=== PATIENT | female | born 1955 | race Caucasian/White ===

== ENCOUNTER 2018-01-18 14:30 | Outpatient (CLI) | payer BC, MEDICARE, SELFPAY ==
[2018-01-18 15:04] LABS: HCT 39.9 % (36.0-46.0); HGB 13.8 g/dL (12.0-15.5); Mean Corp. HGB Concentration 34.6 g/dL (32.0-36.0); Mean Corpuscular Hemoglobin 32.6 pg (27.0-33.0); Mean Corpuscular Volume 94.3 fL (80-95); Mean Platelet Volume 10.8 fL (8.0-11.0); Platelet Count 191 x1000/uL (130-400); RBC 4.23 m/cumm (4.00-5.20); RBC Distribution Width 12.8 % (11.7-14.6); White Blood Cell Count 7.52 k/cumm (4.4-10.8)
[2018-01-18 15:49] LABS: ALT 28 U/L (12-78); AST 21 U/L (15-37); Albumin 3.8 g/dL (3.4-5.0); Alkaline Phosphatase 70 U/L (46-116); Anion Gap 8.4 mmol/L (3-11); BUN 19 mg/dL (7-18); Bilirubin, Total 0.3 mg/dL (0.2-1.0); CO2 31.6 mmol/L (21.0-32.0); CREATININE 0.91 mg/dL (0.55-1.02); Calcium 9.2 mg/dL (8.5-10.1); Chloride 100 mmol/L (98-107); Glucose 106 mg/dL (70-100); Potassium 4.2 mmol/L (3.5-5.1); Sodium 140 mmol/L (136-145); Total Protein 6.9 g/dL (6.4-8.2)
[2018-01-22 14:39] LABS: HCV RNA Detection Quantitative Detected (UNDECT)
== END 2018-01-18 14:50 ==
PROVIDERS: PCP Registered Nurse; Visit Provider Physician Assistant Medical
DX: B18.2 Chronic viral hepatitis C (principal)
CPT/HCPCS: 36415; 80053; 85027; 85025; 87522

== ENCOUNTER 2018-02-21 13:24 | Outpatient (CLI) | payer BC, MEDICARE, SELFPAY ==
[2018-02-21 14:14] LABS: HCT 41.8 % (36.0-46.0); HGB 13.9 g/dL (12.0-15.5); Mean Corp. HGB Concentration 33.3 g/dL (32.0-36.0); Mean Corpuscular Hemoglobin 31.7 pg (27.0-33.0); Mean Corpuscular Volume 95.4 fL (80-95); Mean Platelet Volume 11.2 fL (8.0-11.0); Platelet Count 207 x1000/uL (130-400); RBC 4.38 m/cumm (4.00-5.20); White Blood Cell Count 5.56 k/cumm (4.4-10.8)
== END 2018-02-21 13:44 ==
PROVIDERS: PCP Registered Nurse; Visit Provider Physician Assistant Medical
DX: B18.2 Chronic viral hepatitis C (principal)
CPT/HCPCS: 36415; 85027; 85025

== ENCOUNTER 2018-03-14 13:28 | Outpatient (CLI) | payer BC, MEDICARE, SELFPAY ==
[2018-03-14 14:37] LABS: Absolute Basophil Count 0.03 k/cumm (0.0-0.2); Absolute Eosinophil Count 0.12 k/cumm (0.0-0.7); Absolute Lymphocyte Count 1.83 k/cumm (1.2-3.4); Absolute Monocyte Count 0.47 k/cumm (0.11-0.7); Absolute Neutrophil Count 3.17 k/cumm (1.2-6.7); Basophils % 0.5; Eosinophils % 2.1; HCT 40.6 % (36.0-46.0); HGB 13.7 g/dL (12.0-15.5); Lymphocytes % 32.6; Mean Corp. HGB Concentration 33.7 g/dL (32.0-36.0); Mean Corpuscular Hemoglobin 32.2 pg (27.0-33.0); Mean Corpuscular Volume 95.3 fL (80-95); Mean Platelet Volume 11.1 fL (8.0-11.0); Monocytes % 8.4; Neutrophils % 56.4; Platelet Count 200 x1000/uL (130-400); RBC 4.26 m/cumm (4.00-5.20); RBC Distribution Width 12.7 % (11.7-14.6); White Blood Cell Count 5.62 k/cumm (4.4-10.8)
[2018-03-14 15:26] LABS: ALT 31 U/L (12-78); AST 26 U/L (15-37); Albumin 3.9 g/dL (3.4-5.0); Alkaline Phosphatase 66 U/L (46-116); BUN 18 mg/dL (7-18); Bilirubin, Total 0.4 mg/dL (0.2-1.0); CREATININE 0.87 mg/dL (0.55-1.02); Calcium 9.2 mg/dL (8.5-10.1); Chloride 100 mmol/L (98-107); Glucose 91 mg/dL (70-100); Potassium 4.2 mmol/L (3.5-5.1); Sodium 140 mmol/L (136-145); Total Protein 6.9 g/dL (6.4-8.2)
[2018-03-15 15:01] LABS: HCV RNA Detection Quantitative Undetected IU/mL (UNDECT)
== END 2018-03-14 13:48 ==
PROVIDERS: PCP Registered Nurse; Visit Provider Physician Assistant Medical
DX: B18.2 Chronic viral hepatitis C (principal)
CPT/HCPCS: 36415; 80053; 85025; 87522

== ENCOUNTER 2018-09-11 11:18 | Outpatient (CLI) | payer BC, MEDICARE, SELFPAY ==
[2018-09-11 12:01] LABS: HCT 40.7 % (36.0-46.0); HGB 13.8 g/dL (12.0-15.5); Mean Corp. HGB Concentration 33.9 g/dL (32.0-36.0); Mean Corpuscular Hemoglobin 31.3 pg (27.0-33.0); Mean Corpuscular Volume 92.3 fL (80-95); Mean Platelet Volume 11.5 fL (8.0-11.0); Platelet Count 192 x1000/uL (130-400); RBC 4.41 m/cumm (4.00-5.20); RBC Distribution Width 13.6 % (11.7-14.6); White Blood Cell Count 5.91 k/cumm (4.4-10.8)
[2018-09-11 12:42] LABS: ALT 24 U/L (12-78); AST 17 U/L (15-37); Albumin 3.9 g/dL (3.4-5.0); Alkaline Phosphatase 70 U/L (46-116); Anion Gap 8.1 mmol/L (3-11); BUN 19 mg/dL (7-18); Bilirubin, Total 0.5 mg/dL (0.2-1.0); CO2 30.9 mmol/L (21.0-32.0); CREATININE 0.89 mg/dL (0.55-1.02); Calcium 9.4 mg/dL (8.5-10.1); Chloride 103 mmol/L (98-107); Glucose 100 mg/dL (70-100); Potassium 4.1 mmol/L (3.5-5.1); Sodium 142 mmol/L (136-145)
[2018-09-12 14:42] LABS: HCV RNA Detection Quantitative Undetected IU/mL (UNDECT)
== END 2018-09-11 11:38 ==
PROVIDERS: PCP Registered Nurse; Visit Provider Physician Assistant Medical
DX: B18.2 Chronic viral hepatitis C (principal)
CPT/HCPCS: 36415; 80053; 85027; 87522

== ENCOUNTER 2019-04-30 01:29 | Outpatient (CLI) | payer BC, MEDICARE, SELFPAY ==
--- NOTE | 2019-04-30 10:55 | DI.MAMMO_ITS ---
EXAM: MG MAMMO SCREENING CLINICAL HISTORY: screening Z12.39, PREVENTIVE Z00.00. TECHNIQUE: Bilateral full field digital CC and MLO mammographic images were obtained with 3D tomosyn thesis and utilizing computer aided detection (CAD). COMPARISON: Available for comparison. FINDINGS: Masses/Architectural Distortion: None seen. Microcalcifications: No suspicious pleomorphic-type are seen. Skin Thickening/Nipple Retraction: None. IMPRESSION: 1. No significant interval change with no specific features of malignancy noted. 2. Unless there is more urgent need, screening mammography is recommended, as per [employer] guidelines. ACR BI-RAD Category- 1 Negative Breast Density - Category B - Scattered areas of fibroglandular density A negative radiographic report should not delay biopsy if a dominant or clinically suspicious mass is present. Up to ten percent of cancers are not identified on mammography. A negative report may reinforce clinical impression. Adenosis and dense breasts may obscure an underlying neoplasm. False positive reports average 6 to 10%. Patient will receive a letter notifying them of these results.
== END 2019-04-30 01:49 ==
PROVIDERS: PCP Student in an Organized Health Care Education/Training Program; Visit Provider Student in an Organized Health Care Education/Training Program
DX: Z00.00 Encounter for general adult medical examination without abnormal findings (principal); Z12.31 Encounter for screening mammogram for malignant neoplasm of breast
CPT/HCPCS: 77063; 77067

== ENCOUNTER 2019-06-19 12:55 | Outpatient (CLI) | payer BC, MEDICARE, SELFPAY ==
--- NOTE | 2019-06-19 13:00 | DI.RAD_ITS ---
EXAM: ABDOMEN FLAT PLATE CLINICAL HISTORY: mishel flank pain,microscopic hematuria,h/o renal calcui,R10.9,R31.29,Z87.442. COMPARISON: No exams were available for comparison TECHNIQUE: Supine views of the abdomen performed. FINDINGS: BOWEL GAS PATTERN: Nondistended. CALCIFICATIONS: There is a 2 mm calcification projected over the upper pole of the right renal shadow which may represent a nonobstructing stone. There is a 3 mm calcification inferior to the left sacr oiliac joint. This location might lie in the left ureter. Phleboliths are seen in the pelvis. OSSEOUS STRUCTURES: Normal for age. OTHER FINDINGS: None. IMPRESSION: 1. Nonobstructive bowel gas pattern. 2. Possible nonobstructing stone in the upper pole of the right kidney. 3. 3 mm calcification inferior to the left sacroiliac joint which might lie in the distal ureter. If there is continued clinical concern, a renal colic CT should be considered for further evaluation. DATA REPOSITORY: RADIATION DOSE DELIVERED:
== END 2019-06-19 13:15 ==
PROVIDERS: PCP Student in an Organized Health Care Education/Training Program; Visit Provider Nurse Practitioner
DX: R31.29 Other microscopic hematuria (principal); R10.31 Right lower quadrant pain; R10.32 Left lower quadrant pain; N20.0 Calculus of kidney; Z87.442 Personal history of urinary calculi
CPT/HCPCS: 74018

== ENCOUNTER 2019-08-21 01:25 | Outpatient (CLI) | payer BC, MEDICARE, SELFPAY ==
--- NOTE | 2019-08-21 08:15 | DI.DEXA_ITS ---
EXAM: XR DEXA BONE DENSITY W/WO CARMELO CLINICAL HISTORY: screening for osteoporosis,PREVENTIVE CARE,VIT D DEFICIENT,Z00.00,M81.0, E55.9, OT HER DISORDER OF BONE, M89.8X9 TECHNIQUE COMPARISON: No exams were available for comparison FINDINGS: Lateral Spine Image: Unremarkable. No compression deformities identified. Left hip: Total T-Score: -1.6 Total Z-Score: -0.3 T- and Z-scores: Findings consistent with osteopenia and an increased fracture risk. Lumbar Spine: Total T-Score: -0.7 Total Z-Score: 1.2 T- and Z-scores: Within normal limits. IMPRESSION: No evidence of osteoporosis.
== END 2019-08-21 01:45 ==
PROVIDERS: PCP Student in an Organized Health Care Education/Training Program; Visit Provider Student in an Organized Health Care Education/Training Program
DX: Z00.00 Encounter for general adult medical examination without abnormal findings (principal); E55.9 Vitamin D deficiency, unspecified; M85.88 Other specified disorders of bone density and structure, other site
CPT/HCPCS: 77080

== ENCOUNTER 2020-04-07 17:13 | Emergency (ER) | payer BC, MEDICARE, SELFPAY ==
--- NOTE | 2020-04-07 17:15 | DI.RAD_ITS ---
EXAM: XR ANKLE RT COMPLETE CLINICAL HISTORY: pain s/p fall. TECHNIQUE: 2D digital imaging was performed. COMPARISON: No exams were available for comparison FINDINGS: BONES: No acute fracture is present. No bony destructive lesion is seen. There is a well corticated osseous density inferior to the medial malleolus which appears chronic. JOINTS: The ankle mortise is normally aligned. SOFT TISSUE: Soft tissue swelling about the ankle laterally. IMPRESSION: No acute fracture or dislocation. Lateral soft tissue swelling. DATA REPOSITORY: RADIATION DOSE DELIVERED:
--- NOTE | 2020-04-07 17:15 | DI.RAD_ITS ---
EXAM: XR KNEE LT 3V AP,LAT,ROHAN CLINICAL HISTORY: pain s/p fall. TECHNIQUE: 2D digital imaging was performed. COMPARISON: CR XR ABDOMEN FLAT PLATE from 06/19/2019 FINDINGS: BONES: No acute fracture is present. No bony destructive lesion is seen. JOINTS: The knee is normally aligned. There may be a small joint effusion. SOFT TISSUE: Normal. IMPRESSION: No acute fracture or dislocation. Possible small joint effusion. DATA REPOSITORY: RADIATION DOSE DELIVERED:
--- NOTE | 2020-04-07 17:15 | DI.RAD_ITS ---
EXAM: XR HIP LT COMPLETE AP PELVIS CLINICAL HISTORY: pain s/p fall. TECHNIQUE: 2D digital imaging was performed. COMPARISON: No exams were available for comparison FINDINGS: BONES: No acute fracture is present. No bony destructive lesion is seen. JOINTS: No dislocation present. SOFT TISSUE: Normal. IMPRESSION: No acute fracture or dislocation. DATA REPOSITORY: RADIATION DOSE DELIVERED:
[2020-04-07 17:18] VITALS: BP 172/79; PULSE 78; RESP 18; TEMP 34.5; O2SAT 97
--- NOTE | 2020-04-07 17:30 | ED.GENADUL_ITS ---
Discharge Plan Disposition Patient Disposition: HOME Condition: Stable Discharge Details Clinical Impression: Contusion of hip, left, Contusion of left knee, Sprain of ankle, right Primary Care Provider: Kassandra Lynn ED Provider: Niranjan Pnito Home Meds and New Rx's Prescriptions: New ketorolac 10 mg tablet 10 mg PO Q6H PRN5 Days Qty: 14 RF: 0 Continued ascorbic acid (vitamin C) 500 mg tablet,chewable 500 mg PO BID RF: 0 hydrochlorothiazide 25 mg tablet 25 mg PO DAILY Qty: 90 RF: 3 escitalopram oxalate 20 mg tablet 20 mg PO DAILY Qty: 90 RF: 3 cannabidiol 100 mg/mL solution See Rx Instructions PO .COMPLEX RF: 0 cetirizine 10 mg tablet 10 mg PO DAILY Qty: 90 RF: 1 albuterol sulfate 90 mcg/actuation HFA aerosol inhaler 2 puff IH BID Qty: 8.5 RF: 1 Discharge Instructions Instructions: Contusion in Adults (ED) Additional Instructions: your xray did not show any broken bones if pain continues in a week follow up with your primary care provider. if you have severe worsening pain or new pain such as chest pain return to the emergency department Medical Decision Making 65 yo female comes in with right ankle and left knee pain. She states earlier today she was cleaning her house and tripped on a dog bone and landed on her anterior lower legs and denies hitting head or loc and has not had any head pain, neck pain chest pain, dyspnea, abdominal pain, arm pain or back pain and denies any precediing symptoms to the fall states it was purely mechanical fall. She has pain in lateral right nichol and anterior left knee. She has mild swelling of the lateral malleolus of the right ankle with intact sensation and cap refill and no pain over metatarsals but has limited rom of the ankle due to pain. Has mild swelling of anterior knee, no warmth or redness and limited rom due to pain with intact distal sensation and pulses. Suspect contusion vs sprain vs fracture, will xray to evaluate further. Had some left hip discomfort earlier no tenderness now but will xray to evaluate for possible fx. i do not see any acute findings on the xrays, awaiting vrad. She feels much better, will try to get her up to ambulate using a walker which she states she has at home vrad did not see any acute findings and she is ambulating using a walker with minimal pain and feels comfortable with d/c, will have her f/u with pcp and return precautions given she requests oral toradol and advised not to take iubprofen with this Differential Diagnosis Differential Diagnosis: fracture, dislocation, contusion, sprain Imaging Data Radiologic Study: Attestation: I personally reviewed and interpreted this imaging study as follows: Imaging: X-Ray My impression: no acute findings ankle xray Radiologic Study #2: Attestation: I personally reviewed and interpreted this imaging study as follows: Imaging: X-Ray My impression: no acute findings knee xray Radiologist's impression: IMPRESSION: Knee effusion. No definite fracture. Radiologic Study #3: Attestation: I personally reviewed and interpreted this imaging study as follows: Imaging: X-Ray Radiologist's impression: no acute findings hip xray HPI General Mode of arrival: wheelchair . Date/Time Provider Initiated Documentation: 04/07/20 17:13 . Limitations to Documentation: no limitations . Information obtained by: patient . History of Present Illness 65 year old F presents to the emergency department with the chief complaint of right ankle and left knee pain, described as moderate, Patient started experiencing this hour(s) (6) and it has been constant. No relieving factors improve symptom(s), No exacerbating factors reported . Related Data Home Medications Medication Instructions Recorded Confirmed cannabidiol 100 mg/mL oral solution See Rx Instructions PO .COMPLEX 01/30/19 04/07/20 ascorbic acid (vitamin C) 500 mg 500 mg PO BID 03/26/20 04/07/20 chewable tablet albuterol sulfate 90 mcg/actuation 2 puff IH BID #8.5 gm 03/27/20 04/07/20 aerosol inhaler cetirizine 10 mg tablet 10 mg PO DAILY #90 tab 03/27/20 04/07/20 escitalopram oxalate 20 mg tablet 20 mg PO DAILY #90 tab 04/05/20 04/07/20 hydrochlorothiazide 25 mg tablet 25 mg PO DAILY #90 tab 04/05/20 04/07/20 ketorolac 10 mg PO Q6H PRN 5 Days #14 tab 04/07/20 Previous Rx's Medication Instructions Recorded albuterol sulfate 90 mcg/actuation 2 puff IH BID #8.5 gm 03/27/20 aerosol inhaler cetirizine 10 mg tablet 10 mg PO DAILY #90 tab 03/27/20 escitalopram oxalate 20 mg tablet 20 mg PO DAILY #90 tab 04/05/20 hydrochlorothiazide 25 mg tablet 25 mg PO DAILY #90 tab 04/05/20 ketorolac 10 mg PO Q6H PRN 5 Days #14 tab 04/07/20 Allergies Allergy/AdvReac Type Severity Reaction Status Date / Time erythromycin base Allergy Severe Hives Verified 04/07/20 17:23 Tetracyclines Allergy Severe Anaphyllaxi Verified 04/07/20 17:23 s amitriptyline Allergy Verified 04/07/20 17:23 bupropion [From Wellbutrin] Allergy Anaphylaxsi Verified 04/07/20 17:23 s diazepam [From Valium] Allergy Hives Verified 04/07/20 17:23 ethyl alcohol Allergy Rash Verified 04/07/20 17:23 [From [employer]] ferrous sulfate Allergy Rash Verified 04/07/20 17:23 [From [employer]] herbal drugs Allergy Rash Verified 04/07/20 17:23 [From [employer]] licorice Allergy Rash Verified 04/07/20 17:23 [From [employer]] Penicillins Allergy Swelling Verified 04/07/20 17:23 in tongue ropinirole Allergy Anaphylaxsi Verified 04/07/20 17:23 s Sulfa (Sulfonamide Allergy Hives Verified 04/07/20 17:23 Antibiotics) triazolam Allergy Anaphylaxsi Verified 04/07/20 17:23 s codeine AdvReac Nausea Verified 04/07/20 17:23 trazodone AdvReac Severe Verified 04/07/20 17:23 nightmares General Stated Complaint: Orthopedic CARMEN: 3 Review of Systems All systems reviewed & are unremarkable except as noted in HPI and below Constitutional Constitutional: Denies chills, Denies fever(s) and Denies weakness Cardiovascular Cardiovascular: Denies chest pain and Denies dyspnea Respiratory Respiratory: Denies cough and Denies dyspnea Gastrointestinal Gastrointestinal: Denies abdominal pain, Denies nausea and Denies vomiting Neurologic Neurologic: Denies weakness [facility] Medical History (Updated 04/07/20 @ 18:44 by Niranjan Pinto MD) Atopic rhinitis 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) Benign essential hypertension Cervical radiculitis Cervical radiculopathy due to degenerative joint disease of spine Depression Fibromyalgia GERD (gastroesophageal reflux disease) Hepatitis C s/p Tx (XXX) Hyperglycemia Insomnia Mild intermittent asthma Mendoza's metatarsalgia Nondependent alcohol abuse, in remission Osteoarthritis, knee Osteoporosis Paresthesias Reduced libido Restless leg syndrome Vitamin D deficiency Surgical History History of abdominal hysterectomy History of appendectomy History of bilateral salpingo-oophorectomy History of bladder suspension procedure History of History of cholecystectomy History of tonsillectomy and adenoidectomy Family History Mother Depression Hypertension Father Diabetes Sister Depression Anxiety Maternal Grandfather Alcohol abuse Maternal Grandmother No problems noted. 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[employer], [employer] Pets and animals: Yes Sexually active: Yes Do you think of yourself as: Declined to Provide Current gender identity: female What is your relationship status?: Panel score (0-1 are the most socially isolated patients): 1 What type of physical activity do you participate in: bicycling and other Details: ACTIVE AT WORK Duration: 15-30 minutes/day Frequency: daily Seatbelt use: always Helmet use: Yes Drive intox or ride w/intox cab driver: No Water heater temp set <120 deg: Yes Working smoke detector in home: Yes Fire extinguisher in home: Yes Carbon monox detector in home: Yes Firearms in home: Yes (NOT LOCKED BUT UNLOADED) Firearms unloaded and locked: Yes Do you feel safe at home: Yes Do you feel safe in your relationship?: Yes Exam Const General: no acute distress Orientation: alert HENNM Head: normal to inspection Ears: external ears normal General nose exam: external nose normal Mouth: moist mucous membranes Eyes General: appearance normal, both eyes and all related structures Neck Neck: normal visual inspection Resp Effort & Inspection: normal respiratory effort and able to speak in complete sentences Cardio Rate: regular rate Skin General skin exam: no rashes or lesions noted Neuro General: patient alert and patient oriented x3 Extrem General: capillary refill normal Psych Mental Status: mental status grossly normal Course Vital Signs Vital signs: Vital Signs Temperature 34.5 C L 04/07/20 17:18 Pulse 78 04/07/20 17:18 Respiratory Rate 18 04/07/20 17:18 Blood Pressure 172/79 H 04/07/20 17:18 Pulse Oximetry 97 04/07/20 17:18 Temperature 34.5 C L 04/07/20 17:18 Temperature Source Temporal Artery Scan 04/07/20 17:18 Pulse 78 04/07/20 17:18 Respiratory Rate 18 04/07/20 17:18 Respiratory Effort Non-Labored 04/07/20 17:25 Blood Pressure 172/79 H 04/07/20 17:18 Blood Pressure Position Sitting 04/07/20 17:18 Pulse Oximetry 97 04/07/20 17:18 Oxygen Delivery Method Room Air 04/07/20 17:18 Oxygen Flow Rate 0 04/07/20 17:18 Pain Level 7 04/07/20 17:18
[2020-04-07] MEDS: Ketorolac 30 MG/ML VIAL IM (17:36)
--- NOTE | 2020-04-07 18:42 | DI.VRAD_ITS ---
PROCEDURE INFORMATION: Exam: XR Left Knee Exam date and time: 04/07/2020 6:02 PM Age: 65 years old Clinical indication: Pain; Knee; Left; Patient HX: Fall S/P fall TECHNIQUE: Imaging protocol: XR Left knee. Views: 3 views. COMPARISON: No relevant prior studies available. FINDINGS: Bones/joints: There appears to be a small joint effusion. Bone density is appropriate. Bony alignment is anatomic. No evidence for fracture. Soft tissues: Normal. IMPRESSION: Knee effusion. No definite fracture. Dictated and Authenticated by: Candelaria Guerrier MD. Ordering:TENZIN Ureña MD
--- NOTE | 2020-04-07 18:44 | DI.VRAD_ITS ---
PROCEDURE INFORMATION: Exam: XR Left Hip with Pelvis when Performed Exam date and time: 04/07/2020 6:03 PM Age: 65 years old Clinical indication: Other: Fall S/P fall TECHNIQUE: Imaging protocol: XR Left hip with pelvis when performed. Views: 2 or 3 views. COMPARISON: No relevant prior studies available. FINDINGS: Bones/joints: Unremarkable. No acute fracture. Soft tissues: Unremarkable. IMPRESSION: No evidence for acute posttraumatic abnormality. Dictated and Authenticated by: Candelaria Guerrier MD. Ordering:TENZIN Ureña MD
--- NOTE | 2020-04-07 18:47 | DI.VRAD_ITS ---
Addendum created by Candelaria Guerrier MD on 04/07/2020 6:47:37 PM EST: Clarification: Please disregard the soft tissues section. There is lateral soft tissue swelling. Initial report created on 04/07/2020 6:47:05 PM EST: PROCEDURE INFORMATION: Exam: XR Right Ankle Exam date and time: 04/07/2020 6:03 PM Age: 65 years old Clinical indication: Other: Fall S/P fall TECHNIQUE: Imaging protocol: XR Right ankle. Views: 3 or more views. COMPARISON: No relevant prior studies available. FINDINGS: Bones/joints: There is some soft tissue swelling at the level of the lateral malleolus. There is a well corticated bone density fragment at the level of the medial malleolus, presumed accessory ossicle. Soft tissues: Normal. IMPRESSION: Lateral soft tissue swelling. No evidence for fracture. Dictated and Authenticated by: Candelaria Guerrier MD. Ordering:TENZIN Ureña MD
[2020-04-07 18:56] VITALS: BP 181/90; PULSE 79; RESP 18; TEMP 36.4; O2SAT 96
== END 2020-04-07 19:00 | disposition home or self-care (01) ==
PROVIDERS: Emergency Provider Emergency Medicine; PCP Student in an Organized Health Care Education/Training Program
DX: S93.491A Sprain of other ligament of right ankle, initial encounter (principal); S80.02XA Contusion of left knee, initial encounter; S70.02XA Contusion of left hip, initial encounter; W01.198A Fall on same level from slipping, tripping and stumbling with subsequent striking against other object, initial encounter; I10 Essential (primary) hypertension
CPT/HCPCS: 73562; 96372; 99284; 73502; 73610; J1885

== ENCOUNTER 2020-04-15 02:49 | Outpatient (CLI) | payer BC, MEDICARE, SELFPAY ==
[2020-04-16 04:44] LABS: Vitamin D 25 Total 25.5 ng/ml (30-100)
[2020-04-16 11:01] LABS: HBs Antibody, Qual Negative (See Note); HBs Antibody, Quant <3.1 mIU/mL (See Note); Hepatitis B Core Antibody Negative (Negative); Hepatitis B surface Ag Negative (Negative); Hepatitis C Ab w Rflx HCV PCR Reactive (Negative)
[2020-04-20 14:43] LABS: HCV RNA Qualitative Undetected (Undetected)
== END 2020-04-15 03:09 ==
PROVIDERS: PCP Student in an Organized Health Care Education/Training Program; Visit Provider Student in an Organized Health Care Education/Training Program
DX: E55.9 Vitamin D deficiency, unspecified (principal); M81.0 Age-related osteoporosis without current pathological fracture; Z86.19 Personal history of other infectious and parasitic diseases
CPT/HCPCS: 36415; 82306; 86704; 86706; 86803; 87340; 87522

== ENCOUNTER 2020-10-23 04:34 | Outpatient (CLI) | payer BC, MEDICARE, SELFPAY ==
--- NOTE | 2020-10-23 09:32 | DI.RAD_ITS ---
Exam(s) XR CHEST 2V PA LATERAL EXAM: XR CHEST 2V PA LATERAL CLINICAL HISTORY: cough, SOB r/o pneumonia TECHNIQUE: 2D digital imaging was performed. COMPARISON: No exams were available for comparison FINDINGS: MEDIASTINUM: Normal. HEART: Normal. PULMONARY VASCULATURE: Normal. LUNGS: Benign coarse calcification right lung base. Lungs otherwise clear. No pneumonia. Clear. PLEURAL SPACE: No pleural effusion or pneumothorax. BONE:Unremarkable for age. IMPRESSION: No acute abnormality. DATA REPOSITORY: RADIATION DOSE DELIVERED:
== END 2020-10-23 04:54 ==
PROVIDERS: PCP Nurse Practitioner; Visit Provider Physician Assistant
DX: R05 Cough (principal)
CPT/HCPCS: 71046

== ENCOUNTER 2020-11-26 03:29 | Outpatient (CLI) | payer BC, MEDICARE, SELFPAY ==
--- NOTE | 2020-11-27 07:51 | DI.MAMMO_ITS ---
Exam(s) MAMMO SCREENING EXAM: MAMMO SCREENING CLINICAL HISTORY: screening,z12.39. TECHNIQUE: Bilateral full field digital CC and MLO mammographic images were obtained with 3D tomosyn thesis and utilizing computer aided detection (CAD). COMPARISON: Prior mammograms dating back to 2010, the most recent being April 2019. FINDINGS: No new significant radiograph findings in the right breast. In the left breast there is a new nodular density seen posteriorly, medial of center, approximately 1 0 cm in from the nipple. There is a possibly that this may be a skin mole given that it is most evid ent on the 1st few lower tomographic images. Nevertheless, this was not evident on prior studies. T here are no malignant-appearing microcalcification groups is region or elsewhere in either breast. There is no significant architectural distortion nor skin thickening-retraction. IMPRESSION: 1. Radiographic evidence of malignancy in the right breast. 2. There is a superficially located noncalcified nodule measuring 4 x 4 millimeters, approximately 10 cm in from the nipple of the left breast, posteromedially. There is a possibly that this is a skin mole but was not evident on prior studies. Recommend repeating the left mammogram with skin mole mar ker in place (if indeed there is a mole at this level). Additional spot compression views and possib le ultrasound may also be required BI-RADS Category 0 - Assessment Incomplete: Need additional imaging evaluation Breast Density - Category B - Scattered areas of fibroglandular density Breast density Category C or D implies that the patient has dense breast tissue. Dense breast tissue can make it harder to find cancer on a mammogram. Dense breast tissue is also associated with an incr eased risk of breast cancer. This information about the result of the mammogram report was provided to the patient to raise their awareness. Use this report when you speak with the patient about their risks for breast cancer, which includes their family history. At that time, you may recommend additional screening tests (Ultrasoun d or MRI) as these tests may add significant information. A negative radiographic report should not delay biopsy if a dominant or clinically suspicious mass is present. Up to ten percent of cancers are not identified on mammography. A negative report may reinforce clinical impression. Adenosis and dense breasts may obscure an underlying neoplasm. False positive reports average 6 to 10%. Patient will receive a letter notifying them of these results.
== END 2020-11-26 03:49 ==
PROVIDERS: PCP Nurse Practitioner; Visit Provider Nurse Practitioner
DX: Z12.31 Encounter for screening mammogram for malignant neoplasm of breast (principal); R92.8 Other abnormal and inconclusive findings on diagnostic imaging of breast
CPT/HCPCS: 77063; 77067

== ENCOUNTER 2020-12-23 02:44 | Outpatient (CLI) | payer BC, MEDICARE, SELFPAY ==
--- NOTE | 2020-12-23 | DI.MAMMO_ITS ---
Exam(s) MAMMO SCREEN CALL BACK UNI EXAM: MAMMO SCREEN CALL BACK UNI CLINICAL HISTORY: F/U MAMMO,NEW LT NODULAR DENSITY,? SKIN MOLE. TECHNIQUE: Unilateral spot mammographic images were obtained with 3D tomosynthesis and utilizing Ornis puter aided detection (CAD). . Complete breast Ultrasound was also performed, including all 4 quadrants, the retroareolar region, a nd the ipsilateral axilla. COMPARISON: Prior mammograms were reviewed. This additional imaging was performed due to findings described on the recent screening mammogram of 11/27/2020. FINDINGS: Additional mammographic views performed todaywere performed with a skin marker over the area of meg rn and indeed reveal that this is an actual skin mole, as opposed to a true nodule within the breast tissue Ultrasound was therefore not performed. IMPRESSION: no radiographic evidence of malignancy. Appropriate follow-up is to keep this patient yearly mammogram schedule. The patient was informed of these findings and recommendations prior to leaving the department today. BI-RADS Category 2 - Benign Findings Breast Density - Category B - Scattered areas of fibroglandular density Breast density Category C or D implies that the patient has dense breast tissue. Dense breast tissue can make it harder to find cancer on a mammogram. Dense breast tissue is also associated with an incr eased risk of breast cancer. This information about the result of the mammogram report was provided to the patient to raise their awareness. Use this report when you speak with the patient about their risks for breast cancer, which includes their family history. At that time, you may recommend additional screening tests (Ultrasoun d or MRI) as these tests may add significant information. A negative radiographic report should not delay biopsy if a dominant or clinically suspicious mass is present. Up to ten percent of cancers are not identified on mammography. A negative report may reinforce clinical impression. Adenosis and dense breasts may obscure an underlying neoplasm. False positive reports average 6 to 10%. Patient will receive a letter notifying them of these results.
== END 2020-12-23 03:04 ==
PROVIDERS: PCP Nurse Practitioner; Visit Provider Nurse Practitioner
DX: Z12.31 Encounter for screening mammogram for malignant neoplasm of breast (principal); R92.8 Other abnormal and inconclusive findings on diagnostic imaging of breast
CPT/HCPCS: 77063; 77067

== ENCOUNTER 2021-03-30 02:58 | Outpatient (CLI) | payer BC, MEDICARE, SELFPAY ==
[2021-03-30 08:30] LABS: Calculated LDL 116 mg/dL (<100); Cholesterol 213 mg/dL (<200); HDL Cholesterol 43 mg/dL (40-60); Triglyceride 272 mg/dL (<150)
[2021-04-02 13:47] LABS: 1,25-Dihydroxyvitamin D 30 pg/mL (18-78)
== END 2021-03-30 02:59 | disposition home or self-care (01) ==
LOC: LBO 02:58
PROVIDERS: PCP Nurse Practitioner; Visit Provider Nurse Practitioner
DX: E55.9 Vitamin D deficiency, unspecified (principal); Z13.220 Encounter for screening for lipoid disorders
CPT/HCPCS: 36415; 80061; 82652

== ENCOUNTER 2021-06-09 01:43 | Outpatient (CLI) | payer BC, MEDICARE, SELFPAY ==
[2021-06-09 08:09] LABS: Hemoglobin A1C 6.3 % (<5.7)
[2021-06-09 08:52] LABS: Anion Gap 7.9 mmol/L (3-11); BUN 24 mg/dL (7-18); CO2 30.1 mmol/L (21.0-32.0); CREATININE 0.9 mg/dL (0.55-1.02); Calcium 9.1 mg/dL (8.5-10.1); Chloride 105 mmol/L (98-107); Glucose 152 mg/dL (74-106); Potassium 4.3 mmol/L (3.5-5.1); Sodium 143 mmol/L (136-145)
== END 2021-06-09 01:44 | disposition home or self-care (01) ==
LOC: LBO 01:43
PROVIDERS: PCP Nurse Practitioner; Visit Provider Nurse Practitioner
DX: Z13.1 Encounter for screening for diabetes mellitus (principal); I10 Essential (primary) hypertension
CPT/HCPCS: 36415; 80048; 83036

== ENCOUNTER 2021-08-24 02:21 | Outpatient (CLI) | payer BC, MEDICARE, SELFPAY ==
--- NOTE | 2021-08-24 13:31 | W.NUTCONSULT ---
Date of service: 08/24/21 Time of Service: 13:32 Nutritional Consult ASSESSMENT: Dai was referred for weight management education. PMH: pre diabetes, HTN, HLD, obesity. 5'3 206 BMI: 35. Most recent labs (06/09/21) A1C: 6.3%, Chol: 213, LDL:116, HDL: 43, tri. Vit D wnl. Dai has been working FT at [employer] this year as they are often short staffed. She works from 6:30-2 pm. She typically has 20 minute break for lunch. She reports gaining about 25 lbs in last couple of years and wants to get her weight under 185 lbs. Suspect, excess weight has led to metabolic syndrome with truncal weight gain, elevated lipids, blood pressure and blood sugars as evidenced by labs. Suspect if unable to lower weight by 10%, she will have DM2 in next year. Diet Recall: B: glass milk, egg. L: packet of tuna, D: well balanced, often eats 1 bag chip at night Exercise: none, tired from working all day and being on her feet NUTRITIONAL DIAGNOSIS: Class 2 obesity with BMI of 35 Metabolic Syndrom with elevations in blood sugars, blood pressure and lipids INTERVENTION: Educated Dai on how to follow a lower carbohydrate diet with emphasis on complex carbs, lean protein and non starchy vegetables. Recommend 1 mile walk daily. Encouraged her to count her carb intake and to space out during day and not exceed 100 grams daily. Encouraged her to reduce work hours so she can have more time to walk and eat more well balanced meals. MONITORING AND EVALUATION: follow up 09/23/21 at 1 pm. Goal: 5 lbs weight loss per month. Goal weight: 180-184 lbs. Time Spent in Nutritional Counseling and Treatment: 30
== END 2021-08-24 02:22 | disposition home or self-care (01) ==
LOC: DS 02:21
PROVIDERS: PCP Nurse Practitioner; Visit Provider Dietitian, Registered

== ENCOUNTER 2021-09-23 02:54 | Outpatient (CLI) | payer BC, MEDICARE, SELFPAY ==
--- NOTE | 2021-09-23 13:30 | W.NUTRFU ---
Date of service: 09/23/21 Time of Service: 13:30 Nutrition Note NOTE: Dai returns for weight management education. Wt: 204, down 2 lbs in last 4 weeks. Dai reports that she is now retired and focusing on her health. She has started to be more active and has made many adjustments to her diet. She has stopped eating chips and reduced her milk intake. She also is eating more fish and chicken and increased her non starchy vegetable consumption. She is frustrated that she has only lost 2 lbs despite many diet changes. May benefit from a GLP1ra such as Trulicity or Ozempic to aid with weight loss. Encouraged walking 7 miles per week and maintaining lower carb intake. Goal is to get her weight below 190 lbs. Follow up planned 11/22/21 at 1 pm. Time Spent in Nutritional Counseling and Treatment: 20
== END 2021-09-23 02:55 | disposition home or self-care (01) ==
LOC: DS 02:54
PROVIDERS: PCP Nurse Practitioner; Visit Provider Dietitian, Registered

== ENCOUNTER 2022-01-27 02:31 | Outpatient (CLI) | payer BC, MEDICARE, SELFPAY ==
[2022-01-27 08:44] LABS: ALT 30 U/L (14-59); AST 20 U/L (15-37); Albumin 3.9 g/dL (3.4-5.0); Alkaline Phosphatase 60 U/L (46-116); Anion Gap 10.9 mmol/L (3-11); BUN 28 mg/dL (7-18); Bilirubin, Total 0.4 mg/dL (0.2-1.0); CO2 27.1 mmol/L (21.0-32.0); CREATININE 0.9 mg/dL (0.55-1.02); Calcium 8.9 mg/dL (8.5-10.1); Chloride 104 mmol/L (98-107); Estimated GFR 69.64 (mL/min/1.73m2); Glucose 166 mg/dL (74-106); Potassium 3.7 mmol/L (3.5-5.1); Sodium 142 mmol/L (136-145); Total Protein 7.1 g/dL (6.4-8.2)
[2022-01-27 11:32] LABS: Calculated LDL 39 mg/dL (<100); Cholesterol 114 mg/dL (<200); HDL Cholesterol 48 mg/dL (40-60); Magnesium 1.7 mg/dL (1.8-2.4); Triglyceride 138 mg/dL (<150)
== END 2022-01-27 02:32 | disposition home or self-care (01) ==
LOC: LBO 02:32
PROVIDERS: PCP Nurse Practitioner; Visit Provider Nurse Practitioner Family
DX: E78.5 Hyperlipidemia, unspecified (principal); I10 Essential (primary) hypertension; R73.03 Prediabetes; E66.9 Obesity, unspecified
CPT/HCPCS: 36415; 80053; 80061; 82306; 83036; 83735

== ENCOUNTER 2022-02-01 03:59 | Outpatient (CLI) | payer BC, MEDICARE, SELFPAY ==
--- NOTE | 2022-02-01 15:00 | NS.NUTBLAN_ITS ---
Dai was diagnosed with DM2 on 01/20/22 with A1C: 6.6%. Started 500 mg metformin at that time- no concerns with diarrhea. Diet Recall: eggs and sausage for B, Lunch: sandwich, Dinner: liver and onions with small potato. Exercise: walks 10 min per day. Session today focused on how to make meal plans for a lower carb, higher protein diet with emphasis on complex carbs, lean protein and healthy fats. Goal is for a 10% weight loss in next 90 days. Adding a GLP1 such as trulicity or ozempic may be beneficial for weight loss and glycemic management. Follow up 03/14/22 at 3 pm.
== END 2022-02-01 04:00 | disposition home or self-care (01) ==
LOC: DS 03:59
PROVIDERS: PCP Nurse Practitioner; Visit Provider Dietitian, Registered
DX: E11.9 Type 2 diabetes mellitus without complications (principal); Z79.84 Long term (current) use of oral hypoglycemic drugs; Z71.3 Dietary counseling and surveillance
CPT/HCPCS: 97803

== ENCOUNTER 2022-03-14 03:26 | Outpatient (CLI) | payer BC, MEDICARE, SELFPAY ==
--- NOTE | 2022-03-14 15:00 | NS.NUTBLAN_ITS ---
Dai returns for diabetes self management education. Wt: 196 lbs. Has lost 7 lbs in last 5 weeks. Does no check her blood sugars. Post prandial blood sugar today 107 mg/dl. 2 hours after eating 1/2 sandwich. Dai reports the side effects from metformin and rybelsus are severe- reports muscle pain, fatigue, nausea and head aches. Diet Recall: 2 eggs and sausage remy for B, Lunch: 1/2 sandwich. Dinner: chicken and salad. Has stopped most carbs in diet including fruit, bread, dairy products, grains. Discussed with Dai that the symptoms she reports may be due to her extreme carb reduction. Her average carbohydrate intake is about 30 grams- putting her into ketosis. Recommended that she continue with prescribed medications and increase her carb intake to 80-100grams daily. Requested that she follow up with her PCP if symptoms persist after increase in carbohydrate intake. Reviewed meal plans that provide 20-40 g carbs per meal and encouraged Dai to reintroduce dairy products, fruit and some whole grains. Provided meal plans and encouraged her to start exercise daily once she feels better. Follow up scheduled for 04/21/22 at 2 pm.
== END 2022-03-14 03:27 | disposition home or self-care (01) ==
LOC: DS 03:27
PROVIDERS: PCP Nurse Practitioner Family; Visit Provider Dietitian, Registered
DX: E11.9 Type 2 diabetes mellitus without complications (principal); Z79.84 Long term (current) use of oral hypoglycemic drugs; Z71.3 Dietary counseling and surveillance
CPT/HCPCS: 97803

== ENCOUNTER 2022-04-26 14:40 | Outpatient (CLI) | payer BC, MEDICARE, SELFPAY ==
--- NOTE | 2022-04-26 14:30 | RT.EKG_ITS ---
APPROVED REPORT Exam: Resting ECG Reason for Exam: palpitations Patient Location: O HR:64 bpm ECG Measurements Heart Rate 64 AXIS HI 191 P 65 QRSd 108 QRS -27 QT 415 T 61 QTc 428 Conclusion Sinus rhythm...normal P axis, V-rate 50- 99 Atrial premature complexes...SV complexes w/ short R-R intvls Consider left atrial enlargement...wide or notched P waves Borderline left axis deviation...QRS axis (-15,-29) Abnormal R-wave progression, early transition...QRS area>0 in V2
== END 2022-04-26 14:41 | disposition home or self-care (01) ==
PROVIDERS: PCP Nurse Practitioner Family; Visit Provider Nurse Practitioner Family
DX: R00.2 Palpitations (principal); E11.9 Type 2 diabetes mellitus without complications; E78.5 Hyperlipidemia, unspecified; I10 Essential (primary) hypertension; J45.20 Mild intermittent asthma, uncomplicated; Z00.00 Encounter for general adult medical examination without abnormal findings
CPT/HCPCS: 93010

== ENCOUNTER 2022-04-29 09:00 | Outpatient (CLI) | payer BC, MEDICARE, SELFPAY | END 2022-04-29 09:01 | disposition home or self-care (01) | LOC: CARDOPNVT 09:00 | PROVIDERS: PCP Nurse Practitioner Family; Visit Provider Nurse Practitioner Family | DX: R00.2 Palpitations (principal) | CPT/HCPCS: 93270 ==

== ENCOUNTER 2022-05-26 01:15 | Outpatient (CLI) | payer BC, MEDICARE, SELFPAY | END 2022-05-26 01:35 | PROVIDERS: PCP Nurse Practitioner Family; Visit Provider Nurse Practitioner Family | DX: Z12.31 Encounter for screening mammogram for malignant neoplasm of breast (principal) | CPT/HCPCS: 77063; 77067 ==

== ENCOUNTER 2022-05-26 01:57 | Outpatient (CLI) | payer BC, MEDICARE, SELFPAY ==
[2022-05-26 12:54] LABS: HCT 41.8 % (36.0-46.0); HGB 14.1 g/dL (11.2-15.7); MCH 30.6 pg (27.0-33.0); MCHC 33.7 % (32.0-36.0); MCV 91 fL (80-95); MPV 10.7 fL (8.0-11.0); Platelet Count 229 10^3/uL (130-400); RBC 4.61 10^6/uL (3.93-5.22); RDW 13.2 % (11.7-14.6); RDW-SD 43.4 fL; WBC 6.88 10^3/uL (4.4-10.8)
[2022-05-26 13:20] LABS: Anion Gap 6.4 mmol/L (3-11); BUN 17 mg/dL (7-18); CO2 33.6 mmol/L (21.0-32.0); CREATININE 0.9 mg/dL (0.55-1.02); Calcium 9.5 mg/dL (8.5-10.1); Chloride 103 mmol/L (98-107); Glucose 120 mg/dL (74-106); Potassium 4.1 mmol/L (3.5-5.1); Sodium 143 mmol/L (136-145); TSH (W/Ref FT4) 1.26 uIU/mL (0.36-3.74)
== END 2022-05-26 01:58 | disposition home or self-care (01) ==
LOC: LBO 01:57
PROVIDERS: PCP Nurse Practitioner Family; Visit Provider Nurse Practitioner Family
DX: E11.9 Type 2 diabetes mellitus without complications (principal); E78.5 Hyperlipidemia, unspecified; I10 Essential (primary) hypertension; J45.20 Mild intermittent asthma, uncomplicated; R00.2 Palpitations; Z00.00 Encounter for general adult medical examination without abnormal findings
CPT/HCPCS: 36415; 80048; 85027; 84443

== ENCOUNTER 2022-06-02 02:41 | Outpatient (CLI) | payer BC, MEDICARE, SELFPAY ==
--- NOTE | 2022-06-02 13:00 | NS.NUTBLAN_ITS ---
Dai returns for diabetes and weight management education. 5'3 192 lbs down 12 lbs in last 6 moths BMI: 34 Diet recall: B: 2 eggs, Premier Protein Shake, 2 cheese sticks. Lunch: sandwich, Dinner: salmon, veggies, brown rice Exercise: gym 4 x weekly- 45 min cardio on treadmill/bike Dai is frustrated at lack of weight loss despite following diet and increasing exercise. A1C has gone from 6.6% to 6.0% and she has lost many inches. Now wearing a 1X shirt. Has been able to put DM2in remission by life style changes. Encouraged her to continue to follow meal plan and exercise for health. Goal Weight: 180-185 lbs. Follow up planned for 08/04/22 at 1 pm.
== END 2022-06-02 02:42 | disposition home or self-care (01) ==
LOC: DS 02:44
PROVIDERS: PCP Nurse Practitioner Family; Visit Provider Dietitian, Registered
DX: E11.9 Type 2 diabetes mellitus without complications (principal); E66.9 Obesity, unspecified
CPT/HCPCS: 97803

== ENCOUNTER 2022-06-06 07:33 | Outpatient (CLI) | payer BC, MEDICARE, SELFPAY ==
--- NOTE | 2022-06-06 08:57 | CER_ITS ---
Date of service: 06/06/22 Time of Service: 08:57 Cardiac Event Recorder Referring Provider:: Erum Alston Indications:: Palpitations Cardiac Event Note: This is a telemetry monitor ordered for palpitations. Patient was monitored for approximately 22 days Predominant rhythm was sinus with an average heart rate of 80. Minimum was 56, maximum 112 There were frequent atrial premature beats and atrial runs. There were periods of atrial fibrillation with elevated ventricular response. Maximum was 157. Average heart rate when in atrial fibrillation was 111 It did not appear that any of the dysrhythmia was symptomatic
== END 2022-06-06 07:34 | disposition home or self-care (01) ==
LOC: CARDOPNVT 07:33
PROVIDERS: PCP Nurse Practitioner Family; Visit Provider Internal Medicine Cardiovascular Disease
DX: I48.91 Unspecified atrial fibrillation (principal)

== ENCOUNTER 2022-10-31 15:45 | Outpatient (REF) | payer BC, MEDICARE, SELFPAY ==
[2022-10-31 22:08] LABS: COMMENT (LAB VIEW ONLY) 19.18 mg/dL; Microalb ug/mg Crea 10.4 ug/mg Cr
== END 2022-10-31 15:46 | disposition home or self-care (01) ==
LOC: LBN 15:45
PROVIDERS: PCP Nurse Practitioner Family; Visit Provider Nurse Practitioner Family
DX: E11.9 Type 2 diabetes mellitus without complications (principal)
CPT/HCPCS: 82043; 82570

== ENCOUNTER 2023-04-28 10:01 | Day surgery (SDC) | payer BC, MEDICARE, SELFPAY ==
--- NOTE | 2023-04-27 14:49 | PDOC.DSDIS_ITS ---
Date of service: 04/28/23 Time of Service: 11:34 Discharge Plan Disposition Patient Disposition: Home Condition: Good Discharge Details Reason For Visit: colon scope Attending Provider: Allyn Harper Primary Care Provider: Erum Alston Home Meds and New Rx's Prescriptions: No Action ascorbic acid (vitamin C) 500 mg tablet,chewable 500 mg PO BID magnesium oxide 500 mg tablet 500 mg PO DAILY cholecalciferol (vitamin D3) 50 mcg (2,000 unit) capsule 50 mcg PO DAILY omeprazole 20 mg capsule,delayed release(DR/EC) 20 mg PO DAILY Qty: 90 4RF albuterol sulfate 90 mcg/actuation HFA aerosol inhaler 2 puff IH BID Qty: 8.5 1RF Rx Instructions: ProAir or as best dispensed under insurance coverage escitalopram oxalate 20 mg tablet 20 mg PO DAILY Qty: 90 4RF hydrochlorothiazide 25 mg tablet 25 mg PO DAILY Qty: 90 4RF losartan 100 mg tablet 100 mg PO DAILY Qty: 90 4RF apixaban 5 mg tablet 5 mg PO BID Qty: 180 1RF semaglutide 2 mg/dose (8 mg/3 mL) pen injector 2 mg subcut QWEEK Qty: 3 4RF metoprolol succinate 25 mg tablet extended release 24 hr 25 mg PO DAILY Qty: 90 4RF gabapentin 300 mg capsule 300 mg PO QID 90 Days Qty: 360 4RF amlodipine 5 mg tablet 5 mg PO HS Discharge Instructions Additional Instructions: DSU Colonoscopy Post- Op Instructions Instructions for Everyone who is given Anes thesia: For your safety, please do the following for the next twenty-four (24) hours: *Do Not operate a motor vehicle (car, truck, motorcycle, etc.) *Do Not drink alcoholic beverages or use any recreational drugs for the first 24 hours or while taking pain medications. The medications in your body may have a reaction that can be dangerous. *Do Not make any important decisions or sign any important papers. -Resume Eliquis on Monday -Resume semaglutide on Monday Findings: Diverticular disease Colon polyps Follow up: My office will send you a letter in 2 to 3 weeks time with the results of the pathology, and when we want you to repeat the colonoscopy 1. No lifting over 20 pounds or strenuous activity for the first 24 hours after your procedure. After 24 hours there are no restrictions on your activity but you may feel fatigued for a few days. 2. After you arrive home you may have a light meal and return to your normal diet as you can tolerate it without feeling sick to your stomach. 3. You may have a bloated, gaseous feeling in your belly (abdomen) after a colonoscopy. Passing gas and belching will help. Walking or lying down on your left side with your knees flexed may relieve the discomfort. Call the office at [phone] (Office) or [phone] (Hospital) right away if you notice any of the following: a.Vomiting of blood or ?coffee ground stools?. b.Rectal bleeding 1Tbsp, blood clots or continuous bleeding. c.Severe belly (abdominal) pain. d.A hard distended belly (abdomen) and an inability to pass gas. 4. Please don?t expect to have a normal BM (bowel movement) for 2-3 days after your procedure. 5. If there are questions regarding the findings of your procedure, please contact your doctor 6. If you are unable to contact your doctor with a problem, contact the hospital at [phone]. 7. Continue all your regular medications unless directed otherwise. I understand the above instructions and have no questions. Signature of Patient or Adult Escort Name of Responsible Adult Escort Signature of Nurse Date/Time Activity:: See above Diet:: See above Discharge Orders Discharge Orders: Discharge Order (Routine); Ordered 04/28/23 Ordered By: Allyn Harper DS: Diagnosis Discharge Diagnosis (1) Atrial fibrillation: Status: Chronic (2) Intermittent palpitations: Status: Acute (3) Diabetes mellitus: Status: Chronic (4) Hypertension: Status: Chronic (5) Obesity: Status: Chronic (6) Hyperlipidemia: Status: Acute (7) Restless leg syndrome: Status: None (8) Insomnia: Status: Acute (9) GERD (gastroesophageal reflux disease): Status: Chronic (10) Depression: Status: None (11) Osteoarthritis, knee: Status: Acute (12) Mild intermittent asthma: Status: Acute (13) Hepatitis C: (14) Fibromyalgia: (15) Cervical radiculopathy due to degenerative joint disease of spine: (16) Pancolonic diverticulosis: Status: Acute Asessment and Plan: The patient is seen and examined after their colonoscopy.? The patient has been able to pass gas.? They are not having abdominal pain.? They have been able to tolerate liquids and a snack.? They do not have any nausea or vomiting.? They are not having any chest pain or shortness of breath.??? They are not having any rectal bleeding. Their vital signs have been stable-see nursing notes. We discussed findings during their colonoscopy, and any biopsies that were done/polyps that were removed. The patient will be sent a letter with any biopsy results, and when to repeat the colonoscopy.-see discharge instructions. Patient was given explicit instructions to follow-up regarding colonoscopy-refer to discharge instructions.? We reviewed resumption of medications.Patient verbalized understanding and discharged in stable and satisfactory condition- See nursing notes
--- NOTE | 2023-04-27 14:49 | W.COLOREPORT ---
Date of service: 04/28/23 Time of Service: 11:29 Colonoscopy Report Date of procedure: 04/28/23 Pre-op diagnosis general: crc screening Post-op diagnosis procedure note: other (Christian diverticula and colon polyps) Surgeon: Allyn Harper Anesthesia Type: General:No Airway Estimated blood loss (mL): 1 Pathology: other Complications: None Disposition: same day Prep: Miralax/Dulcolax Retraction Time: 14 Procedure Description: After informed consent was obtained the patient was taken to the procedure room and placed in a left decubitous position. Monitors were applied and a time out was done. The patients name, date of , procedure, allergies to medications and metal in their body was reviewed. The patient was then sedated. Once sedated and comfortable a rectal exam was done. External exam was normal. Internal exam revealed a normal sphincter tone and no palpable masses. The scope was then introduced and retrofelexed. No internal hemorrhoids were identified. The scope was then advanced to the cecum without difficulty. The TI and appendiceal orifice were identified. The prep was BBPS 3 in all segments for a total of 9. The scope was then slowly retracted over 14 minutes back into the rectum. She has christian diverticula that carry all the way over to the cecum. They are large and numerous. There are no signs of active bleeding or infection. She has x2 flat 0.5 cm polyps one at 60 and 1 at 50 cm. Both these are removed with a cold biting forcep. All specimen is retrieved and no bleeding is noted. The scope was removed and the patient was woken up and taken back to Same day surgery in stable condition. The patient tolerated the procedure well and there were no immediate complications. Follow up: The patient should follow up, path pending, unless they develop changes in bowel habits or other new gastrointestinal complaints.
[2023-04-28 10:24] VITALS: BP 172/94; PULSE 74; RESP 16; TEMP 36.5; O2SAT 97
[2023-04-28] MEDS: Lactated Ringers 1,000 ML 80 ML IV (10:28)
--- NOTE | 2023-04-28 10:31 | ANES.PREOP_ITS ---
General Info Date of Service Date Performed: 04/28/23 Height: 5 ft 3 in Weight: 83.461 kg Body Mass Index (BMI): 32.5 Surgical Procedure: Operation Date: 04/28/23 10:35 Proposed Procedure Side Surgeon jignesh Harper, DO Meds Allergies and Home Medications Allergies Allergy/AdvReac Type Severity Reaction Status Date / Time erythromycin base Allergy Severe Hives Verified 04/28/23 10:06 Tetracyclines Allergy Severe Anaphyllaxi Verified 04/28/23 10:06 s amitriptyline Allergy Verified 04/28/23 10:06 bupropion [From Wellbutrin] Allergy Anaphylaxsi Verified 04/28/23 10:06 s diazepam [From Valium] Allergy Hives Verified 04/28/23 10:06 Penicillins Allergy Swelling Verified 04/28/23 10:06 in tongue ropinirole Allergy Anaphylaxsi Verified 04/28/23 10:06 s Sulfa (Sulfonamide Allergy Hives Verified 04/28/23 10:06 Antibiotics) triazolam Allergy Anaphylaxsi Verified 04/28/23 10:06 s lisinopril AdvReac Mild cough Verified 04/28/23 10:06 codeine AdvReac Nausea Verified 04/27/23 15:04 trazodone AdvReac Severe Verified 04/27/23 15:04 nightmares Home Medication Medication Instructions Recorded ascorbic acid (vitamin C) 500 mg 500 mg PO BID 03/26/20 chewable tablet omeprazole 20 mg capsule,delayed 20 mg PO DAILY GERD #90 caps 08/10/21 release cholecalciferol (vitamin D3) 50 50 mcg PO DAILY 04/26/22 mcg (2,000 unit) capsule magnesium oxide 500 mg tablet 500 mg PO DAILY 07/12/22 albuterol sulfate 90 mcg/actuation 2 puff inhalation BID #8.5 grams 07/18/22 aerosol inhaler escitalopram oxalate 20 mg tablet 20 mg PO DAILY #90 tabs 07/18/22 hydrochlorothiazide 25 mg tablet 25 mg PO DAILY #90 tabs 07/18/22 losartan 100 mg tablet 100 mg PO DAILY #90 tabs 07/18/22 apixaban 5 mg tablet 5 mg PO BID #180 tabs 01/31/23 semaglutide 2 mg/dose (8 mg/3 mL) 2 mg (0.75 mL) subcut QWEEK #3 mL 03/13/23 subcutaneous pen injector gabapentin 300 mg capsule 300 mg PO QID 90 days #360 caps 04/18/23 metoprolol succinate 25 mg 25 mg PO DAILY #90 tabs 04/18/23 tablet,extended release 24 hr amlodipine 5 mg tablet 5 mg PO HS 04/27/23 Current Visit Medications: Current Medications Generic Name Dose Route Start Last Admin Trade Name Freq PRN Reason Stop Dose Admin Ringer's Solution 1,000 mls @ 80 mls/hr 04/28/23 06:00 04/28/23 10:28 IV 04/28/23 23:59 80 mls/hr INFUSION ANABEL Administration IV Miscellaneous Supplies 1 each 04/28/23 06:00 Iv Access IV 04/28/23 23:59 DIRECTED ANABEL Ondansetron HCl 4 mg 04/28/23 02:47 Ondansetron 4 Mg/2 Ml Vial IVP 05/28/23 02:46 Q4H PRN PRN Nausea / Vomiting Sodium Chloride 0 ml 04/28/23 06:00 Normal Saline Flush 10 Ml Syr IV 04/28/23 23:59 PRN PRN Sodium Chloride 0 ml 04/28/23 06:00 Normal Saline 10 Ml Vial IJ 04/28/23 23:59 DIRECTED PRN Sterile Water 0 ml 04/28/23 06:00 Water,Injection,Sterile 10 Ml Vial IJ 04/28/23 23:59 DIRECTED PRN PFSH Active Problems Active Problems: Problem Status Onset Code Atrial fibrillation I48.91 Intermittent palpitations R00.2 Leg cramps R25.2 Diabetes mellitus E11.9 COVID-19 U07.1 Hypertension I10 Obesity E66.9 Hyperlipidemia E78.5 Sensorineural hearing loss, bilateral H90.3 Allergic rhinitis J30.9 Vitamin D deficiency E55.9 Insomnia G47.00 GERD (gastroesophageal reflux disease) K21.9 Osteoarthritis, knee M17.10 Mild intermittent asthma J45.20 Medical History Medical History 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 states a long time ago she woke up during her colonoscopy Surgical History Surgical History History of abdominal hysterectomy History of appendectomy History of bilateral salpingo-oophorectomy History of bladder suspension procedure History of History of cholecystectomy History of tonsillectomy and adenoidectomy History of vocal cord polypectomy Tobacco Smoking/Tobacco Use Status: Former Tobacco Use Second hand exposure: Yes Alcohol Alcohol Intake: never Substance Use Substance use: Occasionally Substance use type: marijuana Vital Signs and Lab Results Vital Signs Most Recent Vital Signs in EMR: Most Recent Vital Signs Temp Pulse Resp BP Pulse Ox 36.5 C 74 16 172/94 H 97 04/28/23 10:24 04/28/23 10:24 04/28/23 10:24 04/28/23 10:24 04/28/23 10:24 Point of Care Results Point of Care Results: Finger Stick Blood Glucose 139 04/28/23 10:19 Lab Results Blood Type / Crossmatch: No Data to Display Complete Blood Count: No Data to Display Complete Metabolic Panel: No Data to Display Liver Function Panel: No Data to Display Coagulation Panel: No Data to Display Cardiac Panel: No Data to Display Arterial Blood Gas: No Data to Display Venous Blood Gas: No Data to Display Pancreas Panel: No Data to Display Thyroid Panel: No Data to Display Infectious Disease: No Data to Display Blood Cultures: No Data to Display Toxicology Panel: No Data to Display Imaging and Studies Imaging and Studies Study information below may be from another EMR and interpreted by another provider. Please see original notes in EMR for more complete details. EKG Summary: 04/26/22: Exam: Resting ECG Reason for Exam: palpitations Patient Location: O HR:64 bpm ECG Measurements Heart Rate 64 AXIS MT 191 P 65 QRSd 108 QRS -27 QT 415 T61 QTc 428 Conclusion Sinus rhythm...normal P axis, V-rate 50- 99 Atrial premature complexes...SV complexes w/ short R-R intvls Consider left atrial enlargement...wide or notched P waves Borderline left axis deviation...QRS axis (-15,-29) Abnormal R-wave progression, early transition...QRS area>0 in V2 Anesthesia Assessment and Plan Anesthesia History Personal History: Awareness Under Anesthesia Family History: No Family History of Anesthesia Complications Exercise Tolerance Exercise Tolerance: Metabolic Equivalents>4 Pertinent Negatives Pertinent Negatives: No Symptoms of GERD, No Major Cardiovascular Symptoms or C omplaints and No Major Pulmonary Symptoms or Complaints Cardiac & Pulmonary Exam Cardiac Exam: Normal S1/S2 Heart Sounds Pulmonary Exam: Clear Bilateral Breath Sounds Implantable Cardiac Device Does patient have a Pacemaker or an ICD?: No Airway Exam Known Difficult Airway: No Mallampati Class: 2 Mouth Opening: Normal (> 3cm) Thyromental Distance: Greater than 3 cm Neck Range of Motion: Full ROM Neck Circumference: Normal Teeth Condition: Generalized Poor Dentition ASA Classification ASA Score: ASA 3 Emergency Case?: No NPO Status NPO Status: NPO Clears >2 hours, Solids >8 hours Anesthesia Plan Resuscitation Status: Full Code Anesthesia Technique: General Anesthesia Airway Planned: Natural Airway Monitors Used: Standard Monitors
[2023-04-28 10:36] VITALS: BMI 32.5
--- NOTE | 2023-04-28 11:09 | BOWEL_PTH ---
PATIENT: Dai Salgado LOC: [facility] U#:[id number] AGE/SX: 68/F ROOM: RE04/28/[address]: Allyn Harper : 1955 BED: DIS: 04/28/2023 SPEC #: [id number] RECD: 04/28/23 12:00 STATUS: KELLY REEsteban #: [id number] LUIS A: 04/28/23 11:[address]: Allyn Harper DEPT: Surgical Specimen RECD BY: Maida Prieto ENTERED: 04/28/23 12:01 SP TYPE: Bowel OTHR DR: Erum Alston, PRODUCT SAF[employer]Y COMPLIANCE LEADER Tissues: 1 - BIOPSY BOWEL 2 - BIOPSY BOWEL Procedures: GROSS AND MICRO LEVEL 4 Comments: [id number]
[2023-04-28 11:26] VITALS: BP 134/81; PULSE 76; RESP 16; TEMP 36.2; O2SAT 97
--- NOTE | 2023-04-28 11:49 | W.ANESPOSTOP ---
Postoperative Evaluation Date, Time and Location Date Performed: 04/28/23 Time Performed: 11:49 Patient Location: Day Surgery Unit Vital Signs Most Recent Imported Vital Signs: Most Recent Vital Signs Temp Pulse Resp BP Pulse Ox 36.2 C L 76 16 134/81 97 04/28/23 11:26 04/28/23 11:26 04/28/23 11:26 04/28/23 11:26 04/28/23 11:26 Pain Score Most Recent Pain Score: Most Recent Pain Score Pain Level 0 04/28/23 11:26 Assessment Mental Status: Awake (Alert & Oriented to Patient Baseline) Airway and Respiratory Function: Patent airway with normal (patient baseline) respiratory exam Cardiovascular Function: Hemodynamically Stable Hydration Status: Adequately Hydrated Nausea & Vomiting: No Nausea or Vomiting Pain: Pt. Denies Any Pain Peripheral Nerve Block: Patient did not receive a nerve block
[2023-04-28 11:55] VITALS: BP 158/89; PULSE 58; RESP 18; TEMP 36.4; O2SAT 97
== END 2023-04-28 12:44 | disposition home or self-care (01) ==
PROVIDERS: PCP Nurse Practitioner Family; Visit Provider Surgery
PROC: 0DJD8ZZ Inspection of Lower Intestinal Tract, Via Natural or Artificial Opening Endoscopic (ICD-10-PCS; CPT 45378; principal; 2023-04-28 10:30)
DX: Z12.11 Encounter for screening for malignant neoplasm of colon (principal); D12.5 Benign neoplasm of sigmoid colon; K57.30 Diverticulosis of large intestine without perforation or abscess without bleeding; I48.91 Unspecified atrial fibrillation; I10 Essential (primary) hypertension; E11.9 Type 2 diabetes mellitus without complications; E66.9 Obesity, unspecified; K21.9 Gastro-esophageal reflux disease without esophagitis; D12.4 Benign neoplasm of descending colon
CPT/HCPCS: 45380; 88305; J2250; J2704

== ENCOUNTER 2023-06-09 01:49 | Outpatient (CLI) | payer BC, MEDICARE, SELFPAY ==
[2023-06-09 08:25] LABS: HCT 42.6 % (36.0-46.0); HGB 14.7 g/dL (11.2-15.7); MCH 30.6 pg (27.0-33.0); MCHC 34.5 % (32.0-36.0); MCV 89 fL (80-95); MPV 10.6 fL (8.0-11.0); Platelet Count 237 10^3/uL (130-400); RBC 4.81 10^6/uL (3.93-5.22); RDW 12.5 % (11.7-14.6); RDW-SD 41.1 fL; WBC 6.38 10^3/uL (4.4-10.8)
[2023-06-09 08:46] LABS: Hemoglobin A1C 5.5 % (<5.7)
[2023-06-09 08:53] LABS: ALT 25 U/L (14-59); AST 18 U/L (15-37); Albumin 4.2 g/dL (3.4-5.0); Alkaline Phosphatase 60 U/L (46-116); Anion Gap 12.9 mmol/L (3-11); BUN 22 mg/dL (7-18); Bilirubin, Total 0.6 mg/dL (0.2-1.0); CO2 27.1 mmol/L (21.0-32.0); CREATININE 0.9 mg/dL (0.55-1.02); Calcium 9.7 mg/dL (8.5-10.1); Calculated LDL 116 mg/dL (<100); Chloride 103 mmol/L (98-107); Cholesterol 219 mg/dL (<200); Estimated GFR 68.77 (mL/min/1.73m2); Glucose 134 mg/dL (74-106); HDL Cholesterol 52 mg/dL (40-60); Potassium 3.6 mmol/L (3.5-5.1); Sodium 143 mmol/L (136-145); Total Protein 7.5 g/dL (6.4-8.2); Triglyceride 255 mg/dL (<150)
== END 2023-06-09 01:50 | disposition home or self-care (01) ==
LOC: LBO 01:49
PROVIDERS: PCP Nurse Practitioner Family; Visit Provider Nurse Practitioner Family
DX: Z00.00 Encounter for general adult medical examination without abnormal findings (principal); K21.9 Gastro-esophageal reflux disease without esophagitis; E78.5 Hyperlipidemia, unspecified; E66.9 Obesity, unspecified; I10 Essential (primary) hypertension; E11.9 Type 2 diabetes mellitus without complications
CPT/HCPCS: 36415; 80053; 80061; 85027; 83036

== ENCOUNTER 2023-07-18 08:00 | Outpatient (REF) | payer BC, MEDICARE, SELFPAY ==
--- NOTE | 2023-07-18 07:40 | SKI_PTH ---
PATIENT: Dai Salgado LOC: [facility] U#:[id number] AGE/SX: 68/F ROOM: RE07/18/[address]: Mu Crespo MD : 1955 BED: DIS: 07/18/2023 SPEC #: [id number] RECD: 07/18/23 17:58 STATUS: KELLY CUI #: [id number] LUIS A: 07/18/23 07:[address]: Mu Crespo DEPT: Surgical Specimen RECD BY: Maida Prieto ENTERED: 07/18/23 17:58 SP TYPE: CHARISSA PRADO DR: Erum Alston, AMRIT Tissues: 1 - SKIN BIOPSY(SHAVE/PUNCH) Procedures: SKIN LEVEL 4 Comments: [id number]
== END 2023-07-18 08:01 | disposition home or self-care (01) ==
LOC: LBN 08:00
PROVIDERS: PCP Nurse Practitioner Family; Visit Provider Otolaryngology
DX: L98.9 Disorder of the skin and subcutaneous tissue, unspecified (principal); L82.1 Other seborrheic keratosis
CPT/HCPCS: 88305

== ENCOUNTER → 2023-08-23 04:10 | Outpatient (CLI) | payer BC, MEDICARE, SELFPAY ==
--- NOTE | 2023-08-23 08:15 | DI.MAMMO_ITS ---
Exam(s) MAMMO SCREENING EXAM: MAMMO SCREENING CLINICAL HISTORY: screening,z12.39 TECHNIQUE: Mammograms were interpreted according to the usual protocol including computer analysis w [employer] CAD system, tomosynthesis and C-view imaging. COMPARISON: 2015 through 2022 FINDINGS: The breasts are composed of scattered fibroglandular densities, Breast Density category B. No suspicious masses or suspicious microcalcifications are seen. No skin thickening or abnormal axillary lymph nodes are seen. There has been no significant change from prior exams. IMPRESSION: BI-RADS Category 1, Negative mammogram Yearly screening mammography is recommended. Breast Density - Category B, scattered fibroglandular densities. A negative radiographic report should not delay biopsy if a dominant or clinically suspicious mass is present. Up to ten percent of cancers are not identified on mammography. A negative report may reinforce clinical impression. Adenosis and dense breasts may obscure an underlying neoplasm. False positive reports average 6 to 10%. Patient will receive a letter notifying them of these results.
== END ==
PROVIDERS: PCP Nurse Practitioner Family; Visit Provider Nurse Practitioner Family
DX: Z12.31 Encounter for screening mammogram for malignant neoplasm of breast (principal)
CPT/HCPCS: 77063; 77067

== ENCOUNTER 2024-06-04 04:30 | Outpatient (CLI) | payer BC, MEDICARE, SELFPAY ==
[2024-06-04 09:24] LABS: HCT 40.8 % (36.0-46.0); HGB 14.2 g/dL (11.2-15.7); MCH 31.6 pg (27.0-33.0); MCHC 34.8 % (32.0-36.0); MCV 91 fL (80-95); MPV 10.5 fL (8.0-11.0); Platelet Count 208 10^3/uL (130-400); RBC 4.49 10^6/uL (3.93-5.22); RDW 12.5 % (11.7-14.6); RDW-SD 41.6 fL; WBC 9.03 10^3/uL (4.4-10.8)
[2024-06-04 09:59] LABS: COMMENT (LAB VIEW ONLY) 239.19 mg/dL; Microalb ug/mg Crea 6.4 ug/mg Cr
[2024-06-04 10:03] LABS: ALT 37 U/L (14-59); AST 26 U/L (15-37); Albumin 4.3 g/dL (3.4-5.0); Alkaline Phosphatase 58 U/L (46-116); BUN 22 mg/dL (7-18); Bilirubin, Total 0.76 mg/dL (0.2-1.0); CREATININE 1.3 mg/dL (0.55-1.02); Calcium 9.4 mg/dL (8.5-10.1); Chloride 101 mmol/L (98-107); Cholesterol 216 mg/dL (<200); Estimated GFR 43.96 (mL/min/1.73m2); Glucose 140 mg/dL (74-106); HDL Cholesterol 44 mg/dL (40-60); Potassium 3.9 mmol/L (3.5-5.1); Sodium 143 mmol/L (136-145); Total Protein 7.7 g/dL (6.4-8.2); Triglyceride 537 mg/dL (<150)
[2024-06-04 10:15] LABS: LDL CHOLESTEROL 111 mg/dL (<100)
== END 2024-06-04 04:31 | disposition home or self-care (01) ==
LOC: LBO 04:30
PROVIDERS: PCP Nurse Practitioner Family; Visit Provider Nurse Practitioner Family
DX: E11.9 Type 2 diabetes mellitus without complications (principal); Z00.00 Encounter for general adult medical examination without abnormal findings; I10 Essential (primary) hypertension; I48.91 Unspecified atrial fibrillation; E78.5 Hyperlipidemia, unspecified; J45.20 Mild intermittent asthma, uncomplicated; G47.00 Insomnia, unspecified
CPT/HCPCS: 36415; 80053; 80061; 83721; 85027; 82043; 82570

== ENCOUNTER 2024-08-28 02:09 | Outpatient (CLI) | payer BC, MEDICARE, SELFPAY ==
--- NOTE | 2024-08-28 08:00 | DI.MAMMO_ITS ---
Exam(s) MAMMO SCREENING EXAM: MAMMO SCREENING CLINICAL HISTORY: screening,Z12.39 TECHNIQUE: Bilateral full field digital CC and MLO mammographic images were obtained with 3D tomosyn thesis and utilizing computer aided detection (CAD). COMPARISON: Available for comparison. FINDINGS: Masses/Architectural Distortion: No suspicious masses or areas of architectural distortion are presen t. Microcalcifications: No suspicious pleomorphic-type are seen. Skin Thickening/Nipple Retraction: None. IMPRESSION: 1. No significant interval change with no specific features of malignancy noted. 2. Unless there is more urgent need, screening mammography is recommended, as per [employer] guidelines. BI-RADS Category 1 - Negative Breast Density - Category B - There are scattered areas of fibroglandular density. Breast density Category C or D implies that the patient has dense breast tissue. Dense breast tissue can make it harder to find cancer on a mammogram. Dense breast tissue is also associated with an incr eased risk of breast cancer. This information about the result of the mammogram report was provided to the patient to raise their awareness. Use this report when you speak with the patient about their risks for breast cancer, which includes their family history. At that time, you may recommend additional screening tests (Ultrasoun d or MRI) as these tests may add significant information. A negative radiographic report should not delay biopsy if a dominant or clinically suspicious mass is present. Up to ten percent of cancers are not identified on mammography. A negative report may reinforce clinical impression. Adenosis and dense breasts may obscure an underlying neoplasm. False positive reports average 6 to 10%. Patient will receive a letter notifying them of these results.
== END 2024-08-28 02:29 ==
LOC: DI 02:10
PROVIDERS: PCP Nurse Practitioner Family; Visit Provider Nurse Practitioner Family
DX: Z12.31 Encounter for screening mammogram for malignant neoplasm of breast (principal); R92.323 Mammographic fibroglandular density, bilateral breasts
CPT/HCPCS: 77063; 77067